=== PATIENT | female | born 1965 | race Caucasian/White ===

== ENCOUNTER 2020-06-18 22:00 | Emergency (ER) | payer BC ==
[2020-06-18] MEDS ORDERED: Enoxaparin 150 MG/1 ML Syringe SUBCUT ONE (22:06)
[2020-06-18] MEDS ORDERED: Sodium Chloride 0.9% 2.5 ML Syringe FLUSH PRN (22:07)
[2020-06-18] MEDS ORDERED: Albuterol HFA 18 Gm Inhaler INH STA (22:10)
[2020-06-18] MEDS ORDERED: Enoxaparin 150 MG/1 ML Syringe ONE (22:18)
[2020-06-18] MEDS ORDERED: Albuterol HFA 18 Gm Inhaler ONE (22:18)
--- NOTE | 2020-06-18 22:51 | EDM.PDOC ---
ED HPI GENERAL MEDICAL PROBLEM - General Chief Complaint: Respiratory Problem Stated Complaint: TROUBLE BREATHING Time Seen by Provider: 06/18/20 22:04 - History of Present Illness INITIAL COMMENTS - FREE TEXT/NARRATIVE: History of present illness: [] The patient is gotten short of breath and has trouble breathing came up over several days gradually. Its gotten to the point where she cannot tolerate activity. She has chronic edema both lower extremities and a remote history of pulmonary emboli. She is not on blood thinners for more than a year. Review of systems: As per history of present illness and below otherwise all systems reviewed and negative. Past medical history: As per history of present illness and as reviewed below otherwise noncontributory. Surgical history: As per history of present illness and as reviewed below otherwise noncontributory. Social history: No reported history of drug or alcohol abuse. Family history: As per history of present illness and as reviewed below otherwise noncontri butory. Physical exam: Constitutional - well developed, well-nourished and in acute distress HEENT - normocephalic, no evidence of trauma - external nose and mouth normal - no mass in neck and no JVD - mucosae moist EYES - full EOM, PERRL, no icterus - no evidence of inflammation, injection, or drainage Respiratory - no respiratory distress, equal bilateral expansion, lungs using accessory muscles, prolonged expiratory phase, decreased breath sounds throughout. Scattered wheezes. Cardiovascular - Regular Rhythm with S1 and S2 appreciated and no murmur, gallop or rub. GI - abdomen soft without distension or organomegaly - normal bowel sounds - no guard or rebound Musculoskeletal no gross deformity of long bones or joints - no tenderness, significant edema in both lower extremities Neurologic - Alert and oriented times four - CN II-XII grossly intact - motor sensory and coordination symmetrically normal Psychiatric - appropriate mood and affect with normal thought content Hematologic - No petechiae or purpura - mucosa appropriate color and sclera not pale - normal nail bed color and refill Integument - no rash or evidence of trauma - normal turgor Diagnostics: [] Therapeutics: [] Impression: [] Plan: [] Definitive disposition and diagnosis as appropriate pending reevaluation and review of above. - Related Data Allergies Allergy/AdvReac Type Severity Reaction Status Date / Time bacitracin Allergy Blisters Verified 06/18/20 22:10 [From Neosporin ([id number])] neomycin Allergy Blisters Verified 06/18/20 22:10 [From Neosporin ([id number])] polymyxin B Allergy Blisters Verified 06/18/20 22:10 [From Neosporin ([id number])] Home Meds: Home Meds Escitalopram Oxalate 5 mg PO DAILY 08/03/16 [History] Levothyroxine Sodium [Synthroid] 125 mcg PO DAILY 08/03/16 [History] metFORMIN HCl [Metformin HCl ER] 1 gm PO BID 08/03/16 [History] buPROPion HCL [Wellbutrin Xl] 150 mg PO DAILY 05/06/18 [History] Acetaminophen/HYDROcodone [[place] 325-5 MG] 1 tab PO Q4H PRN tablet 05/13/18 [Rx] Dulaglutide [Trulicity] 0.75 mg SQ ASDIRECTED 06/18/20 [History] Past Medical History HEENT History: Reports: Other (See Below) Other HEENT History: wears glasses Cardiovascular History: Reports: None Respiratory History: Reports: PE, Sleep Apnea Other Respiratory History: PE in 2008, sleep apnea-uses CPAP Gastrointestinal History: Reports: None Genitourinary History: Reports: None Musculoskeletal History: Reports: Arthritis Neurological History: Reports: None Psychiatric History: Reports: Anxiety, Depression Endocrine/Metabolic History: Reports: Hypothyroidism, Obesity/BMI 30+ Other Endocrine/Metabolic History: Prediabetic Hematologic History: Reports: None Immunologic History: Reports: None Oncologic (Cancer) History: Reports: None Dermatologic History: Reports: None - Past Surgical History Head Surgeries/Procedures: Reports: None Cardiovascular Surgical History: Reports: Other (See Below) Other Cardiovascular Surgeries/Procedures: cardiac catheterization- no stents GI Surgical History: Reports: Appendectomy, Colonoscopy ED ROS GENERAL - Review of Systems Review Of Systems: Comprehensive ROS is negative, except as noted in HPI. ED EXAM, GENERAL - Physical Exam Exam: See Below Free Text/Narrative:: My physical exam is in the HPI #1 Interpretation EKG Interpretation Comments: EKG done at 2204. Sinus tachycardia heart rate 120 [place] 157 QT 423 [place] II 07 poor R wave progression. This is compared to 08/16/2017 and there is a change in axis. The tachycardia and change in axis could be consistent with pulmonary e mbolus and there is no obvious acute myocardial ischemia Course - Vital Signs Text/Narrative:: 10:49 PM the patient is breathing quite a bit better. Her oxygen saturation is good. Her effort is decreased. Her lungs are more clear. 00 41 hours I begin the process of trying to transfer this patient so that she could be better managed and have cardiology consult. The CT was read by Dr. Lovett at is extensive bilateral pulmonary emboli with right ventricular dilatation on the CT. At 00 41 ER doctor at [facility] said they cannot accommodate this patient. At 00 45 we called [facility] and at 0103 Dr. Santacruz accepted the patient in transfer. Another episode of shortness of breath but vital signs remained stable and she improved again with an inhaled beta agonist. This patient was seen and evaluated during the 2019 SARS-CoV-2 novel coronavirus pandemic period. Community viral transmission is ongoing at time of this encounter and the emergency department is operating under pandemic response procedures. There is a life-threatening nature of the patient's shortness of breath and the urgency of evaluation and treatment of this pulmonary embolus I addressed that before having the absolute diagnosis and then reassessed her after the initial troponin elevation to be sure this was not a primary myocardial event. Total time in evaluation of the patient arrangements for transfer discussion with other professionals evaluation of data available in making final decisions about treatment and disposition resulted in a critical care time separate for any procedures billed separately of 42 minutes Last Recorded V/S: Last Vital Signs Temp 37.3 C 06/19/20 01:01 Pulse 112 H 06/19/20 01:06 Resp 18 06/19/20 01:06 BP 134/66 06/19/20 01:06 Pulse Ox 98 06/19/20 01:06 - Orders/Labs/Meds Orders: Active Orders 24 hr Category Date Time Status EKG Documentation Completion [RC] AM Care 06/18/20 22:07 Active RT Post Treatment Assessment [RC] Click to Edit Care 06/18/20 22:10 Active RT Pre-Treatment Assessment [RC] Click to Edit Care 06/18/20 22:10 Active Sodium Chloride 0.9% [Normal Saline] 1,000 ml Med 06/18/20 23:30 Active IV ASDIRECTED Sodium Chloride 0.9% [Saline Flush] Med 06/18/20 22:07 Active 10 ml FLUSH ASDIRECTED PRN Sodium Chloride 0.9% [Saline Flush] Med 06/18/20 22:07 Active 2.5 ml FLUSH ASDIRECTED PRN Saline Lock Insert [OM.PC] Stat Oth 06/18/20 22:07 Ordered Medication Orders Sodium Chloride (Normal Saline) 1,000 mls @ 150 mls/hr IV ASDIRECTED GANESH Last Admin: 06/18/20 23:29 Dose: 150 mls/hr Documented by: ALMITA Sodium Chloride (Saline Flush) 10 ml FLUSH ASDIRECTED PRN PRN Reason: Keep Vein Open Last Admin: 06/18/20 23:31 Dose: 10 ml Documented by: Admin: 06/18/20 23:22 Dose: 10 ml Documented by: ALMITA Sodium Chloride (Saline Flush) 2.5 ml FLUSH ASDIRECTED PRN PRN Reason: Keep Vein Open Last Admin: 06/18/20 23:32 Dose: 2.5 ml Documented by: ALMITA Labs: Laboratory Tests 06/18/20 06/18/20 06/18/20 Range/Units 22:10 22:10 22:10 WBC 9.96 (4.0-11.0) K/uL RBC 5.11 (4.30-5.90) M/uL Hgb 17.1 H (12.0-16.0) g/dL Hct 51.7 H (36.0-46.0) % MCV 101.2 H (80.0-98.0) fL MCH 33.5 H (27.0-32.0) pg MCHC 33.1 (31.0-37.0) g/dL RDW Std Deviation 49.8 (28.0-62.0) fl RDW Coeff of Yohana 14 (11.0-15.0) % Plt Count 214 (150-400) K/uL MPV 11.20 (7.40-12.00) fL Neut % (Auto) 71.0 (48.0-80.0) % Lymph % (Auto) 24.4 (16.0-40.0) % [place] % (Auto) 2.8 (0.0-15.0) % Eos % (Auto) 1.5 (0.0-7.0) % Baso % (Auto) 0.3 (0.0-1.5) % Neut # (Auto) 7.1 H (1.4-5.7) K/uL Lymph # (Auto) 2.4 (0.6-2.4) K/uL [place] # (Auto) 0.3 (0.0-0.8) K/uL Eos # (Auto) 0.2 (0.0-0.7) K/uL Baso # (Auto) 0.0 (0.0-0.1) K/uL Nucleated RBC % 0.0 /100WBC Nucleated RBCs # 0 K/uL INR APTT 24.0 (18.6-31.3) SEC Sodium 139 (136-145) mmol/L Potassium 4.0 (3.5-5.1) mmol/L Chloride 102 (98-107) mmol/L Carbon Dioxide 22.3 (21.0-32.0) mmol/L BUN 17 (7.0-18.0) mg/dL Creatinine 1.7 H (0.6-1.0) mg/dL Est Cr Clr Drug Dosing 35.00 mL/min Estimated GFR (MDRD) 31.2 ml/min Glucose 345 H (74-106) mg/dL Calcium 9.2 (8.5-10.1) mg/dL Total Bilirubin 0.6 (0.2-1.0) mg/dL AST 136 H (15-37) IU/L ALT 168 H (14-63) IU/L Alkaline Phosphatase 193 H (46-116) U/L Troponin I 0.180 H* (0.000-0.056) ng/mL B-Natriuretic Peptide (<100) PG/ML Total Protein 7.8 (6.4-8.2) g/dL Albumin 3.7 (3.4-5.0) g/dL Globulin 4.1 H (2.6-4.0) g/dL Albumin/Globulin Ratio 0.9 (0.9-1.6) Influenza Type A RNA (NEGATIVE) Influenza Type B RNA (NEGATIVE) SARS-CoV-2 RNA (PACHECO) (NEGATIVE) 06/18/20 06/18/20 06/18/20 Range/Units 22:10 22:10 22:53 WBC (4.0-11.0) K/uL RBC (4.30-5.90) M/uL Hgb (12.0-16.0) g/dL Hct (36.0-46.0) % MCV (80.0-98.0) fL MCH (27.0-32.0) pg MCHC (31.0-37.0) g/dL RDW Std Deviation (28.0-62.0) fl RDW Coeff of Yohana (11.0-15.0) % Plt Count (150-400) K/uL MPV (7.40-12.00) fL Neut % (Auto) (48.0-80.0) % Lymph % (Auto) (16.0-40.0) % [place] % (Auto) (0.0-15.0) % Eos % (Auto) (0.0-7.0) % Baso % (Auto) (0.0-1.5) % Neut # (Auto) (1.4-5.7) K/uL Lymph # (Auto) (0.6-2.4) K/uL [place] # (Auto) (0.0-0.8) K/uL Eos # (Auto) (0.0-0.7) K/uL Baso # (Auto) (0.0-0.1) K/uL Nucleated RBC % /100WBC Nucleated RBCs # K/uL INR 1.05 APTT (18.6-31.3) SEC Sodium (136-145) mmol/L Potassium (3.5-5.1) mmol/L Chloride (98-107) mmol/L Carbon Dioxide (21.0-32.0) mmol/L BUN (7.0-18.0) mg/dL Creatinine (0.6-1.0) mg/dL Est Cr Clr Drug Dosing mL/min Estimated GFR (MDRD) ml/min Glucose (74-106) mg/dL Calcium (8.5-10.1) mg/dL Total Bilirubin (0.2-1.0) mg/dL AST (15-37) IU/L ALT (14-63) IU/L Alkaline Phosphatase (46-116) U/L Troponin I (0.000-0.056) ng/mL B-Natriuretic Peptide 229 H (<100) PG/ML Total Protein (6.4-8.2) g/dL Albumin (3.4-5.0) g/dL Globulin (2.6-4.0) g/dL Albumin/Globulin Ratio (0.9-1.6) Influenza Type A RNA NEGATIVE (NEGATIVE) Influenza Type B RNA NEGATIVE (NEGATIVE) SARS-CoV-2 RNA (PACHECO) NEGATIVE (NEGATIVE) 06/19/20 Range/Units 00:23 WBC (4.0-11.0) K/uL RBC (4.30-5.90) M/uL Hgb (12.0-16.0) g/dL Hct (36.0-46.0) % MCV (80.0-98.0) fL MCH (27.0-32.0) pg MCHC (31.0-37.0) g/dL RDW Std Deviation (28.0-62.0) fl RDW Coeff of Yohana (11.0-15.0) % Plt Count (150-400) K/uL MPV (7.40-12.00) fL Neut % (Auto) (48.0-80.0) % Lymph % (Auto) (16.0-40.0) % [place] % (Auto) (0.0-15.0) % Eos % (Auto) (0.0-7.0) % Baso % (Auto) (0.0-1.5) % Neut # (Auto) (1.4-5.7) K/uL Lymph # (Auto) (0.6-2.4) K/uL [place] # (Auto) (0.0-0.8) K/uL Eos # (Auto) (0.0-0.7) K/uL Baso # (Auto) (0.0-0.1) K/uL Nucleated RBC % /100WBC Nucleated RBCs # K/uL INR APTT (18.6-31.3) SEC Sodium (136-145) mmol/L Potassium (3.5-5.1) mmol/L Chloride (98-107) mmol/L Carbon Dioxide (21.0-32.0) mmol/L BUN (7.0-18.0) mg/dL Creatinine (0.6-1.0) mg/dL Est Cr Clr Drug Dosing mL/min Estimated GFR (MDRD) ml/min Glucose (74-106) mg/dL Calcium (8.5-10.1) mg/dL Total Bilirubin (0.2-1.0) mg/dL AST (15-37) IU/L ALT (14-63) IU/L Alkaline Phosphatase (46-116) U/L Troponin I 0.175 H* (0.000-0.056) ng/mL B-Natriuretic Peptide (<100) PG/ML Total Protein (6.4-8.2) g/dL Albumin (3.4-5.0) g/dL Globulin (2.6-4.0) g/dL Albumin/Globulin Ratio (0.9-1.6) Influenza Type A RNA (NEGATIVE) Influenza Type B RNA (NEGATIVE) SARS-CoV-2 RNA (PACHECO) (NEGATIVE) Meds: Medications Generic Name Dose Route Start Last Admin Trade Name Freq PRN Reason Stop Dose Admin Sodium Chloride 1,000 mls @ 150 mls/hr 06/18/20 23:30 06/18/20 23:29 Normal Saline IV 150 mls/hr ASDIRECTED GANESH Administration Sodium Chloride 10 ml 06/18/20 22:07 06/18/20 23:31 Saline Flush FLUSH 10 ml ASDIRECTED PRN Administration Keep Vein Open Sodium Chloride 2.5 ml 06/18/20 22:07 06/18/20 23:32 Saline Flush FLUSH 2.5 ml ASDIRECTED PRN Administration Keep Vein Open Discontinued Medications Generic Name Dose Route Start Last Admin Trade Name Fredavid PRN Reason Stop Dose Admin Albuterol Confirm 06/18/20 22:18 06/18/20 23:25 Ventolin Hfa Administered 06/18/20 22:19 Not Given Dose 18 gm .ROUTE .STK-MED ONE Albuterol 18 gm 06/18/20 22:10 06/18/20 23:25 Ventolin Hfa INH 06/18/20 22:11 2 puff STAT STA Administration Enoxaparin Sodium Confirm 06/18/20 22:18 06/18/20 23:26 Lovenox Administered 06/18/20 22:19 Not Given Dose 150 mg .ROUTE .STK-MED ONE Enoxaparin Sodium 150 mg 06/18/20 22:06 06/18/20 23:23 Lovenox SUBCUT 06/18/20 22:07 150 mg ONETIME ONE Administration Iopamidol 50 ml 06/19/20 00:03 06/19/20 00:04 Isovue-300 (61%) IVPUSH 06/19/20 00:04 50 ml ONETIME STA Administration Departure - Departure Time of Disposition: 01:45 Disposition: DC/Tfer to Acute Hospital 02 Condition: Good Clinical Impression: Pulmonary emboli, Myocardial strain - Discharge Information Referrals: Leopoldo Eubanks MD [Primary Care Provider] - Forms: ED Department Discharge Sepsis Event Note (ED) - Evaluation Sepsis Screening Result: No Definite Risk - Focused Exam Vital Signs: Vital Signs Temp Pulse Resp BP Pulse Ox 06/19/20 01:06 112 H 18 134/66 98 06/19/20 01:01 37.3 C 06/19/20 00:36 108 H 18 136/83 96 06/19/20 00:06 107 H 18 146/76 H 98 06/18/20 22:50 107 H 18 131/59 L 97 06/18/20 22:30 102 H 19 123/82 97 06/18/20 22:05 96 06/18/20 22:00 36.4 C 108 H 32 H 111/60 79 L - My Orders Last 24 Hours: My Active Orders 06/18/20 22:07 EKG Documentation Completion [RC] AM Sodium Chloride 0.9% [Saline Flush] 10 ml FLUSH ASDIRECTED PRN Sodium Chloride 0.9% [Saline Flush] 2.5 ml FLUSH ASDIRECTED PRN Saline Lock Insert [OM.PC] Stat 06/18/20 22:10 RT Post Treatment Assessment [RC] Click to Edit RT Pre-Treatment Assessment [RC] Click to Edit 06/18/20 23:30 Sodium Chloride 0.9% [Normal Saline] 1,000 ml IV ASDIRECTED - Assessment/Plan Last 24 Hours: My Active Orders 06/18/20 22:07 EKG Documentation Completion [RC] AM Sodium Chloride 0.9% [Saline Flush] 10 ml FLUSH ASDIRECTED PRN Sodium Chloride 0.9% [Saline Flush] 2.5 ml FLUSH ASDIRECTED PRN Saline Lock Insert [OM.PC] Stat 06/18/20 22:10 RT Post Treatment Assessment [RC] Click to Edit RT Pre-Treatment Assessment [RC] Click to Edit 06/18/20 23:30 Sodium Chloride 0.9% [Normal Saline] 1,000 ml IV ASDIRECTED
--- NOTE | 2020-06-18 23:04 | CR ---
HISTORY: Shortness of breath COMPARISON: Chest two views from 06/21/2019 FINDINGS: A portable erect AP view of the chest was obtained at 22 20 hours. Again seen is mild vascular engorgement without interstitial pulmonary edema, findings of mild volume overload without venu congestive failure. The heart has increased in size and is now top normal in size. At least part of the increase in size as the result of magnification on this AP view, compared to the PA view obtained previously. The mediastinum is normal in appearance. The osseous structures are normal in appearance for the patient`s age. IMPRESSION: Stable mild volume overload without venu congestive failure. Increase in heart size, now top normal. Dictated by Luc Dinh MD @ Jun 18 2020 11:00PM Signed by Dr. Luc Dinh @ Jun 18 2020 11:02PM
[2020-06-18 23:07] LABS: CARBON DIOXIDE,CO2 22.3 mmol/L (21.0-32.0)
[2020-06-18] MEDS: Sodium Chloride 0.9% 10 ML Syringe FLUSH PRN ×2 (23:22→23:31)
[2020-06-18] MEDS ORDERED: Sodium Chloride 0.9% 1,000 ML IV SCH (23:30)
[2020-06-18 23:50] LABS: CORONAVIRUS COVID-19 NAA NEGATIVE (NEGATIVE); INFLUENZA A NAA NEGATIVE (NEGATIVE); INFLUENZA B NAA NEGATIVE (NEGATIVE)
[2020-06-19] MEDS ORDERED: Iopamidol 612 MG/ML 50 ML SDV IVPUSH STA (00:03)
--- NOTE | 2020-06-19 00:38 | CT ---
INDICATION: Shortness of breath TECHNIQUE: CT chest PE was acquired with 50 cc Isovue-300 intravenous contrast. COMPARISON: None. FINDINGS: Heart and vasculature: Bilateral filling defects within the pulmonary arteries at the branch point of the right main pulmonary artery extending into the right middle and right lower lobe as well as a smaller component in the right upper lobe. Occlusive component in the left upper lobe as well as significant components in lingula and left lower lobe. RV/LV ratio 1.27. No pericardial effusion. Thoracic aorta normal in caliber. Lungs and pleural: No pleural effusion or pneumothorax. No focal pulmonary consolidation. Lymph nodes/mediastinum: No mediastinal, hilar, or axillary adenopathy. Chest wall: No masses. Upper abdomen: Fatty infiltration of the liver. Bones: Unremarkable for age. IMPRESSION: 1. Acute pulmonary embolus extending to all lobes with elevated RV/LV ratio suggesting right heart strain. 2. Fatty infiltration of the liver. Results called to Dr. Woodson at 0034 on 06/19/2020 Please note that all CT scans at this facility use dose modulation, iterative reconstruction, and/or weight-based dosing when appropriate to reduce radiation dose to as low as reasonably achievable. Dictated by Luis Alfredo Lovett MD @ Jun 19 2020 12:24AM Signed by Dr. Luis Alfredo Lovett @ Jun 19 2020 12:36AM
[2020-06-19 01:10] VITALS: BP 134/66; PULSE 112
== END 2020-06-19 02:10 ==
LOC: MW.ED 22:00
DX: S29.011A Strain of muscle and tendon of front wall of thorax, initial encounter (principal); I26.99 Other pulmonary embolism without acute cor pulmonale; F41.9 Anxiety disorder, unspecified; F32.9 Major depressive disorder, single episode, unspecified; E03.9 Hypothyroidism, unspecified; R00.0 Tachycardia, unspecified; E66.9 Obesity, unspecified; Z68.44 Body mass index [BMI] 60.0-69.9, adult; Z20.828 Contact with and (suspected) exposure to other viral communicable diseases; Z88.1 Allergy status to other antibiotic agents; Z79.899 Other long term (current) drug therapy; X58.XXXA Exposure to other specified factors, initial encounter
CPT/HCPCS: 0240U; 36415; 71045; 71275; 80053; 83880; 84484; 85025; 85610; 85730; 93005; 96372; 99291; J1650; J7030; Q9967; 93010; J3535-GY

== ENCOUNTER 2020-07-26 12:05 | Day surgery (SDC) | payer BC ==
--- NOTE | 2020-07-19 10:43 | PCM.SN.2 ---
- Free Text/Narrative Note: Anesthesia Consult Jul 19, 2020 reason for consult: BMI of 63 planned surgery: hysteroscopy, excision of cervical polyp PMH: PE in 2008 while on BCPs, and PE again with DVT of RLE in Jun- currently on coumadin. planned for lovenox bridging for surgery She does not thing she has had a workup for causes of thrombophilia LIAN diagnosed about 4 years ago, uses CPAP religiously every night has spinal stenosis dxed during a workup for chronic low back pain ERRORS IN THE PATIENT'S H&P -- PATIENT DENIES HAVING HAD A PNEUMOTHORAL IN 2008 - DOCUMENTED ON THE SURGEONS H&P. PATIENT ALSO DENIES HAVING HAD A CARDIAC CATHETERIZATION ALSO DOCUMENTED ON THE SURGEON'S H&P Exam: Mallampati 3, opens well, good dentition Anesthetic plan: options would be 1) anxiolysis with para cervical block, 2) GA/LMA with CPAP available for use in PACU, Regardless of the chosen anesthetic, prolonged observation will be required in phase 2 PACU (minimum of 3-4 hours total, including a mandatory period of 2 hours of observation after any episode of desaturation. Because of the patients spinal stenosis I would not recommend a saddle block for this surgery because of the increased risk of lumbar subdural hematoma in patients with spinal stenosis who have had a spinal anesthetic. Patient advised overnight admission might be required if she continued to have oxygen desaturations in PACU after surgery Torrey Noble MD
[~2020-07-26 12:05] MED LIST: Lactated Ringers 1,000 ML IV SCH
--- NOTE | 2020-07-26 13:00 | PCM.PREANE ---
Preanesthetic Assessment - Anesthesia/Transfusion/Family Hx Anesthesia History: Prior Anesthesia Without Reaction Family History of Anesthesia Reaction: No Transfusion History: No Prior Transfusion(s) Intubation History: Unknown - Review of Systems General: No Symptoms Pulmonary: No Symptoms, Other (sats 94% on RA) Cardiovascular: No Symptoms Gastrointestinal: No Symptoms Neurological: No Symptoms Other: Reports: None - Physical Assessment Height: 5 ft 6 in Weight: 180.53 kg ASA Class: 3 Mental Status: Alert & Oriented x3 Airway Class: Mallampati = 3 Dentition: Reports: Normal Dentition Thyro-Mental Finger Breadths: 3 Mouth Opening Finger Breadths: 2 ROM/Head Extension: Limited/Partial Lungs: Clear to Auscultation, Normal Respiratory Effort Cardiovascular: Regular Rate, Regular Rhythm - Lab Values: Laboratory Last Values WBC 8.92 K/uL (4.0-11.0) 07/26/20 12:21 RBC 4.68 M/uL (4.30-5.90) 07/26/20 12:21 Hgb 15.4 g/dL (12.0-16.0) 07/26/20 12:21 Hct 46.8 % (36.0-46.0) H 07/26/20 12:21 MCV 100.0 fL (80.0-98.0) H 07/26/20 12:21 MCH 32.9 pg (27.0-32.0) H 07/26/20 12:21 MCHC 32.9 g/dL (31.0-37.0) 07/26/20 12:21 RDW Std Deviation 47.1 fl (28.0-62.0) 07/26/20 12:21 RDW Coeff of Yohana 13 % (11.0-15.0) 07/26/20 12:21 Plt Count 263 K/uL (150-400) 07/26/20 12:21 MPV 10.20 fL (7.40-12.00) 07/26/20 12:21 Nucleated RBC % 0.0 /100WBC 07/26/20 12:21 Nucleated RBCs # 0 K/uL 07/26/20 12:21 HCG, Qual NEGATIVE (NEG) 07/26/20 12:21 - Allergies Allergies/Adverse Reactions: Allergies Allergy/AdvReac Type Severity Reaction Status Date / Time bacitracin Allergy Blisters Verified 06/18/20 22:10 [From Neosporin ([id number])] neomycin Allergy Blisters Verified 06/18/20 22:10 [From Neosporin ([id number])] polymyxin B Allergy Blisters Verified 06/18/20 22:10 [From Neosporin ([id number])] - Blood Blood Available: No - Anesthesia Plan Pre-Op Medication Ordered: None - Acknowledgements Anesthesia Type Planned: General Anesthesia Pt an Appropriate Candidate for the Planned Anesthesia: Yes Alternatives and Risks of Anesthesia Discussed w Pt/Guardian: Yes Pt/Guardian Understands and Agrees with Anesthesia Plan: Yes PreAnesthesia Questionnaire HEENT History: Reports: Impaired Vision, Other (See Below) Other HEENT History: wears glasses Cardiovascular History: Reports: High Cholesterol, Hypertension Respiratory History: Reports: PE, Sleep Apnea Other Respiratory History: states had a pulmonary embolism in 2008 due to control pills, second PE 06/18/20- now on Lovenox (last one yesterday noon) and has sleep apnea-uses CPAP Gastrointestinal History: Reports: None Genitourinary History: Reports: None FAMILY SUPPORT SPECIALIST History: Reports: None Musculoskeletal History: Reports: Arthritis Neurological History: Reports: None Psychiatric History: Reports: Anxiety Endocrine/Metabolic History: Reports: Diabetes, Type II, Hypothyroidism, Obesity/BMI 30+ (BMI 64.2) Hematologic History: Reports: None Immunologic History: Reports: None Oncologic (Cancer) History: Reports: None Dermatologic History: Reports: None - Infectious Disease History Infectious Disease History: Reports: None - Past Surgical History Head Surgeries/Procedures: Reports: None HEENT Surgical History: Reports: None Cardiovascular Surgical History: Reports: None, Other (See Below) (cardiac cath 2 years ago -OK) GI Surgical History: Reports: Appendectomy, Cholecystectomy, Colonoscopy Endocrine Surgical History: Reports: None Musculoskeletal Surgical History: Reports: None - SUBSTANCE USE Tobacco Use Status *Q: Never Tobacco User - HOME MEDS Home Medications: Home Meds Levothyroxine Sodium [Synthroid] 125 mcg PO DAILY 08/03/16 [History] metFORMIN HCl [Metformin HCl ER] 1 gm PO BID 08/03/16 [History] buPROPion HCL [Wellbutrin Xl] 150 mg PO DAILY 05/06/18 [History] Dulaglutide [Trulicity] 0.75 mg SQ ASDIRECTED 06/18/20 [History] Dulaglutide [Trulicity] 1 dose SUBCUT WEEKLY 07/23/20 [History] Enoxaparin [Lovenox] 1 dose SUBCUT BID 07/23/20 [History] Glimepiride 2 mg PO DAILY 07/23/20 [History] Multivitamin [Multi-Vitamin Daily] 1 tab PO DAILY 07/23/20 [History] Warfarin [Coumadin] 1 tab PO DAILY 07/23/20 [History] buPROPion HCL [Bupropion Xl] 1 tab PO DAILY 07/23/20 [History] - CURRENT (IN HOUSE) MEDS Current Meds: Current Medications Lactated Ringer's (Ringers, Lactated) 1,000 mls @ 125 mls/hr IV ASDIRECTED GANESH Discontinued Medications Acetaminophen (Ofirmev) Confirm Administered Dose 100 mls @ as directed .ROUTE .STK-MED ONE Stop: 07/26/20 12:39
[2020-07-26] MEDS ORDERED: Midazolam 1 MG/ML 2 ML SDV ONE ×2 (13:15→13:58)
[2020-07-26] MEDS ORDERED: fentaNYL 100 MCG/2 ML SDV ONE (13:15)
[2020-07-26] MEDS ORDERED: Propofol 200 MG/20 ML SDV ONE ×2 (13:17→14:22)
[2020-07-26] MEDS ORDERED: Rocuronium Bromide 50 MG/5 ML Syringe ONE (13:20)
[2020-07-26] MEDS ORDERED: Glycopyrrolate 0.2 MG/ML SDV ONE (13:20)
[2020-07-26] MEDS ORDERED: Succinylcholine/Sod PF 100 MG/5 ML SYRINGE IV ONE ×3 (13:20→13:24)
[2020-07-26] MEDS ORDERED: Lidocaine 1% 20 ML MDV ONE (13:48)
--- NOTE | 2020-07-26 15:06 | PCM.OPNOTE ---
- General Post-Op/Procedure Note Date of Surgery/Procedure: 07/26/20 Operative Procedure(s): hysteroscopic polypectomy and fractional D&C Findings: 3x4 cm polyp protruding from the cervix into the vagina, uterus sounds to 9 cm. 2x3 cm polyp within the uterine cavity, the endometrium otherwise appears smooth and atrophic. Limited visualization of uterine cavity due to blood and body habitus, as well as expedited case due to recent PE. Pre Op Diagnosis: postmenopausal bleeding, uterine polyps, anticoagulated due to recent PE. Post-Op Diagnosis: Same Anesthesia Technique: MAC, Other (see below) (cervical block) Primary Surgeon: Michelle Rust Anesthesia Provider: Terence Gomez Dish Machine Operator: Evens Scruggs Pathology: cervical polyp, endometrial polyp, endometrial curettings, uterine curettings. Output, Urine Amount: 40 EBL in mLs: 50 Drain/Tube Comments:: hysteroscopic deficit 300 ml NS Complications: None known Condition: Good Free Text/Narrative:: Intake & Output 07/26/20 07/26/20 07/26/20 06:59 14:59 22:59 Intake Total 800 Balance 800
--- NOTE | 2020-07-26 15:10 | PCM.POSTAN ---
POST ANESTHESIA ASSESSMENT - MENTAL STATUS Mental Status: Alert, Oriented - VITAL SIGNS Vital Signs: Last Vital Signs Temp 36.3 C 07/26/20 14:40 Pulse 85 07/26/20 15:00 Resp 24 H 07/26/20 15:00 BP 128/60 07/26/20 15:00 Pulse Ox 91 L 07/26/20 15:00 - RESPIRATORY Respiratory Status: Respiratory Rate WNL, Airway Patent, O2 Saturation Stable - CARDIOVASCULAR CV Status: Pulse Rate WNL, Blood Pressure Stable - GASTROINTESTINAL GI Status: No Symptoms - PAIN Pain Score: 0 - POST OP HYDRATION Hydration Status: Adequate & Stable - OBSERVATIONS Free Text/Narrative:: No anesthesia problems
--- NOTE | 2020-07-26 15:34 | PCM48HPAN ---
Post Anesthesia Note - EVALUATION WITHIN 48HRS OF ANESTHETIC Vital Signs in Normal Range: Yes Patient Participated in Evaluation: Yes Respiratory Function Stable: Yes Airway Patent: Yes Cardiovascular Function Stable: Yes Hydration Status Stable: Yes Pain Control Satisfactory: Yes Nausea and Vomiting Control Satisfactory: Yes Mental Status Recovered: Yes Vital Signs: Last Vital Signs Temp 36.3 C 07/26/20 15:10 Pulse 86 07/26/20 15:25 Resp 16 07/26/20 15:25 BP 136/62 07/26/20 15:25 Pulse Ox 95 07/26/20 15:25 - COMMENTS/OBSERVATIONS Free Text/Narrative:: No anesthesia problems
[2020-07-26 16:22] VITALS: BP 144/63; PULSE 86
--- NOTE | 2020-07-26 16:58 | OR ---
SURGEON: Michelle Rust M.D. DATE OF PROCEDURE: 07/26/2020 PREOPERATIVE DIAGNOSES: Postmenopausal bleeding, endometrial polyp, and anticoagulated due to recent pulmonary embolism. POSTOPERATIVE DIAGNOSES: Postmenopausal bleeding, endometrial polyp, and anticoagulated due to recent pulmonary embolism. PROCEDURE: Multiple polypectomy, hysteroscopy, and fractional dilation and curettage. PRIMARY SURGEON: Michelle Rust M.D. ANESTHESIA: Monitored anesthetic care with IV sedation and cervical block. ESTIMATED BLOOD LOSS: 50 mL. HYSTEROSCOPIC DEFICIT: 300 mL of normal saline. PATHOLOGY SPECIMENS: Ectocervical polyp, endometrial polyp, endocervical curettings, and endometrial curettings. COMPLICATIONS: None known. DISPOSITION: Stable to Recovery. BRIEF HISTORY: This is a 55-year-old female. In early June, she experienced a saddle embolism and was placed on anticoagulation. Subsequently, she began to have postmenopausal bleeding. She had not been seen for a [facility] exam in approximately 12 years, and upon evaluation in the clinic, there was a very large polyp protruding from her cervix that was friable, and ultrasound showed an additional polyp within the uterine cavity with a thickened endometrium. Due to her anticoagulation which would cause recurrent hemorrhaging as well as due to concern to rule out neoplasia, I did feel that it was prudent to proceed with removal of the polyps and she is greater than 1 month from her pulmonary embolism event. She is on anticoagulation. Dr. Eubanks assisted with transitioning her to Lovenox. Her last dose was 24 hours prior to surgery, and she will resume within the next 12 to 24 hours depending on bleeding, and I did not feel it was prudent to wait 6 months due to the risk of not proceeding with further evaluation at this time. After she had a preoperative evaluation with anesthesia and they recommended avoiding a general anesthetic if at all possible, therefore, we came to the conclusion to proceed with a cervical block with IV sedation. The patient is agreeable to this understanding I may not have the best access with this approach. However, avoiding general anesthetic, avoids an episode of hypotension that could precipitate another clot or another embolic event. Understanding all these, she desires to proceed. General risks of hysteroscopy were reviewed including bleeding, infection, injury to the surrounding organs, risk of thromboembolic event, and risk of anesthesia. Understanding all these risks, she does desire to proceed. DESCRIPTION OF PROCEDURE: While the patient was awake, she was positioned in [facility]. She stated that this was comfortable for her. The perineum and vagina were prepped with Betadine. Again, this was performed while the patient was awake with her consent and reassurance and she did tolerate this well. She was then given IV sedation, and a speculum was placed in the vagina. The extremely large polyp was protruding and was grasped with a ring forceps and with repetitive turning motion, I was able to remove the cervical polyp without any difficulty. This was placed in a specimen cup. I then had significant difficulty attempting to identify the cervix. However, once I was able to identify it, I did grasp it with an Allis clamp. A total of 30 mL of 1% lidocaine diluted 1:1 with normal saline was injected at the 12, 5, and 7 o'clock position. The uterus was sounded to 9 cm. The hysteroscope was placed into the uterine cavity, and there was good visualization. However, the cavity could not be completely evaluated because of the extremely large polyp that was protruding from the fundus. Therefore, MyoSure was utilized to excise this polyp as well as several other areas of prominent endometrium. This being completed, further visualization showed basically atrophic endometrium. However, I was unable to identify both tubal ostia due to difficulty with body habitus as well as blood following the polypectomy; however, rather than delaying the case in a high-risk patient, I did continue on to removing the hysteroscope, and endocervical curettage was performed with a box curette, and the tissue was collected with a Cytobrush and sent for pathology. Sharp curettage of the uterine cavity was then performed at the 12, 3, 6, and 9 o'clock positions for sampling. All of the instruments were then removed from the vagina. Final sponge, needle, and instrument counts were reported as correct. There were no known complications. HYSTEROSCOPIC DEFICIT: 300 mL of normal saline. VANESSA / CHIP /[id number]
== END 2020-07-26 16:58 | disposition home or self-care (01) ==
LOC: MW.SDS 12:05
PROVIDERS: ATTEND Obstetrics & Gynecology
DX: N84.0 Polyp of corpus uteri (principal); N87.9 Dysplasia of cervix uteri, unspecified; Z88.8 Allergy status to other drugs, medicaments and biological substances; E78.00 Pure hypercholesterolemia, unspecified; I10 Essential (primary) hypertension; E11.9 Type 2 diabetes mellitus without complications; E03.9 Hypothyroidism, unspecified; E66.9 Obesity, unspecified; Z68.44 Body mass index [BMI] 60.0-69.9, adult; Z90.49 Acquired absence of other specified parts of digestive tract; Z79.899 Other long term (current) drug therapy; Z79.84 Long term (current) use of oral hypoglycemic drugs; Z79.01 Long term (current) use of anticoagulants
CPT/HCPCS: 36415; 58558; 82962; 84703; 85027; 88305; J0131; J0330; J2001; J2250; J2704; J3010; J3490; J7120; 00952

== ENCOUNTER 2025-01-16 16:23 | Emergency (ER) | payer BC ==
[2025-01-16] MEDS: LORazepam 2 MG/ML SDV IVPUSH STA (17:38)
[2025-01-16] MEDS: Ketorolac 30 MG/ML SDV IVPUSH ONE ×2 (17:42→22:11)
[2025-01-16 17:43] LABS: BASOPHILS ABSOLUTE AUTO 0.07 K/uL (0.00-0.20); BASOPHILS PERCENT AUTO 0.4 % (0.0-1.0); EOSINOPHILS ABSOLUTE AUTO 0.04 K/uL (0.00-0.45); EOSINOPHILS PERCENT AUTO 0.3 % (0.0-6.0); IMMATURE GRAN ABSOLUTE AUTO 0.09 K/uL (0.00-0.05); IMMATURE GRAN PERCENT AUTO 0.6 % (0.0-0.4); LYMPHOCYTES ABSOLUTE AUTO 0.31 K/uL (1.00-4.80); LYMPHOCYTES PERCENT AUTO 2.0 % (24.0-44.0); MEAN PLATELET VOLUME 10.4 fL (9.4-12.3); MONOCYTES ABSOLUTE AUTO 0.08 K/uL (0.00-0.80); MONOCYTES PERCENT AUTO 0.5 % (0.0-8.0); NEUTROPHILS ABSOLUTE AUTO 15.15 K/uL (1.80-7.70); NEUTROPHILS PERCENT AUTO 96.2 % (41.0-71.0); NRBC ABSOLUTE 0.00 K/uL (0.00-0.02); NRBC PERCENT 0.0 /100WBC (0.0-0.2); PLATELET COUNT,PLT 243 K/uL (150-400); RED BLOOD CELL COUNT 4.73 M/uL (4.10-5.30); WHITE BLOOD CELL COUNT,WBC 15.74 K/uL (3.9-11.3)
[2025-01-16 18:13] LABS: LACTIC ACID 3.5 mmol/L (0.4-2.0)
[2025-01-16 18:22] LABS: A/G RATIO 0.7 (0.9-1.6); ALANINE AMINOTRANSFERASE,ALT 364.0 IU/L (14-63); ASPARTATE AMNIOTRANSFERASE,AST 345.0 IU/L (15-37); BILIRUBIN TOTAL 9.4 mg/dL (0.2-1.0); BLOOD UREA NITROGEN,BUN 19.0 mg/dL (7.0-18.0); CARBON DIOXIDE,CO2 21.7 mmol/L (21.0-32.0); CHLORIDE,CL 99.0 mmol/L (98-107); CREATININE 1.4 mg/dL (0.6-1.0); EST CRCL DRUG DOSING (CG) 40.0 mL/min; GLUCOSE RANDOM 103.0 mg/dL (74-106); POTASSIUM,K 3.5 mmol/L (3.5-5.1); PROTEIN TOTAL,TP 7.4 g/dL (6.4-8.2); SODIUM,NA 137.0 mmol/L (136-145)
[2025-01-16 18:27] LABS: ESTIMATED GFR 43.0 mL/min (>60)
[2025-01-16 18:47] LABS: TSH ULTRASENSITIVE 3.98 uIU/mL (0.36-3.74)
[2025-01-16] MEDS: Iopamidol 755 MG/ML 500 ML Multipack Bottle IVPUSH STA (18:52)
[2025-01-16 19:13] LABS: T4 FREE 1.22 ng/dL (0.76-1.46)
[2025-01-16 19:24] LABS: APPEARANCE,URINE SLT CLOUDY; GLUCOSE,URINE 100 mg/dL (NEGATIVE); OCCULT BLOOD,URINE NEGATIVE (NEGATIVE)
[2025-01-16] MEDS: VANCOmycin 2 GM/400 ML 2 GM in Premix Bag 1 BAG IV ONE (19:35)
[2025-01-16] MEDS: Magnesium Sulfate 2 GM/50 mL 2 GM in Premix Bag 1 BAG IV ONE (19:36)
[2025-01-16 19:38] LABS: EPITHELIAL CELLS,URINE MODERATE (NONE-FEW)
[2025-01-16] MEDS: Norepinephrine Bit/D5W Premix 250 ML IV SCH (22:57)
[2025-01-17 01:29] VITALS: BP 117/49; PULSE 91
== END 2025-01-17 01:37 ==
LOC: MW.ED 16:23
DX: A41.9 Sepsis, unspecified organism (principal); I10 Essential (primary) hypertension; E11.9 Type 2 diabetes mellitus without complications; E03.9 Hypothyroidism, unspecified; E23.7 Disorder of pituitary gland, unspecified; N39.0 Urinary tract infection, site not specified; Z88.8 Allergy status to other drugs, medicaments and biological substances; Z90.49 Acquired absence of other specified parts of digestive tract; Z79.890 Hormone replacement therapy; Z79.4 Long term (current) use of insulin
CPT/HCPCS: 36415; 70450; 71046; 74177; 80053; 81001; 82947; 83605; 83690; 83735; 84439; 84443; 85025; 87040; 87086; 87154; 87426; 93005; 96361; 96365; 96366; 96367; 96368; 96375; 99285; A9270; J1885; J2060; J2543; J3372; J3475; J7030; Q9967; 93010